=== PATIENT | female | born 1950 | race Caucasian/White ===

== ENCOUNTER 2017-05-27 00:26 | Day surgery (SDC) | payer MEDICARE, OTHER ==
[~2017-05-27 00:26] MED LIST: ALBUTEROL INH; AMLO5 PO; BUDE6HFA INH; CALCIUM PO; CETI5 PO; CONEST.625 PO; CONEST.9 PO; CYCL10 PO; Calcium 600+D1 EAC2 PO; DICL.1SO OD; FLUT110OIA; GEMF600 PO; HYDPAM100 PO; HYDSUL200 PO; IRON PO; LISI20 PO; LORA10ER PO; LOSA25 PO; LOSARTAN-HCTZ1 EAC2 PO; LOSHYD100 PO; MONT10T PO; MULVITMINF PO; NAPR220 PO; OLME5TAB PO; PRED10 PO; PROBIOTIC 5 BI1 EACH PO; PROP30DR OP; Remicade100 MG IV; SULF500A PO; VIT D PO; VITAMIN E PO; ZINC PO
[2017-05-27] MEDS ORDERED: PRED10 PO (15:07)
[2017-05-27] MEDS ORDERED: ALBU3IS INH (15:08)
[2017-05-27] MEDS ORDERED: ALLEGRA ALLERG180 MG PO (15:09)
[2017-05-27 16:42] LABS: BASOPHILS ABSOLUTE AUTO 0.01 K/mm3 (0.00-0.23); BASOPHILS PERCENT AUTO 0 % (0-2); EOSINOPHILS ABSOLUTE AUTO 0.02 K/mm3 (0.00-0.68); EOSINOPHILS PERCENT AUTO 0 % (0-6); Hemoglobin 11.6 g/dL (11.5-16.0); IMMATURE GRAN ABSOLUTE AUTO 0.04 K/mm3 (0.00-0.10); IMMATURE GRAN PERCENT AUTO 0 % (0-1); LYMPHOCYTES ABSOLUTE AUTO 0.89 K/mm3 (0.84-5.20); LYMPHOCYTES PERCENT AUTO 8 % (21-46); MONOCYTES ABSOLUTE AUTO 0.39 K/mm3 (0.16-1.47); MONOCYTES PERCENT AUTO 3 % (4-13); Mean Corpuscular HGB 29.1 pg (26.0-34.0); Mean Corpuscular HGB Conc 31.4 g/dL (31.5-36.5); Mean Corpuscular Volume 93 fL (80-100); Mean Platelet Volume 9.6 fL (9.1-12.4); NEUTROPHILS ABSOLUTE AUTO 9.98 K/mm3 (1.96-9.15); NEUTROPHILS PERCENT AUTO 88 % (41-73); Platelet Count 313 K/mm3 (150-400); RDW Coefficient Variation 13.7 % (11.7-14.2); RDW Standard Deviation 46.5 fL (35.1-46.3); Red Blood Cell Count 3.99 M/mm3 (3.80-5.20); White Blood Cell Count 11.33 K/mm3 (4.00-11.30)
[2017-05-27 17:41] LABS: Alanine Aminotransfer (ALT/SGP 29 U/L (12-78); Albumin, Blood 3.8 g/dL (3.4-5.0); Alk Phos 78 U/L (50-136); Anion Gap 9 mmol/L (6-16); Aspartate Aminotrans (AST/SGOT 23 U/L (12-37); Bilirubin, Total 0.3 mg/dL (0.1-1.0); Blood Urea Nitrogen 16 mg/dL (8-24); Bun/Creatinine Ratio 18.5 (12.0-20.0); C-REACTIVE PROTEIN, EXT RANGE 0.493 mg/dL (0.000-0.300); CO2, Blood 25 mmol/L (21-32); Calcium, Blood 9.4 mg/dL (8.5-10.1); Chloride, Blood 103 mmol/L (98-108); Creatinine, Blood 0.87 mg/dL (0.40-1.00); Globulin, Blood 3.7 g/dL (2.2-4.0); Glomerular Filtration Rate >60 (60-); Glucose, Blood 125 mg/dL (70-99); Potassium, Blood 4.1 mmol/L (3.5-5.5); Sodium, Blood 137 mmol/L (136-145); Total Protein, Blood 7.5 g/dL (6.4-8.2)
[2017-09-18] MEDS ORDERED: INFLECTRA100 MG IV (10:03)
== END 2017-05-27 15:26 | disposition home or self-care (01) ==
LOC: ATC 00:26
PROVIDERS: Internal Medicine Rheumatology
DX: M06.09 Rheumatoid arthritis without rheumatoid factor, multiple sites (principal); H93.19 Tinnitus, unspecified ear; E78.5 Hyperlipidemia, unspecified; I10 Essential (primary) hypertension
CPT/HCPCS: 36415; 80053; 85025; 86140; 99211; J1745; J7050

== ENCOUNTER 2017-06-07 01:02 | Day surgery (SDC) | payer MEDICARE, OTHER ==
[~2017-06-07 01:02] MED LIST changes: +ALBU3IS INH; +ALLEGRA ALLERG180 MG PO
[2017-09-18] MEDS ORDERED: INFLECTRA100 MG IV (10:03)
== END 2017-06-07 16:56 | disposition home or self-care (01) ==
LOC: ATC 01:02
DX: M06.09 Rheumatoid arthritis without rheumatoid factor, multiple sites (principal); H93.13 Tinnitus, bilateral; I10 Essential (primary) hypertension; Z77.22 Contact with and (suspected) exposure to environmental tobacco smoke (acute) (chronic); E78.5 Hyperlipidemia, unspecified
CPT/HCPCS: 96413; 96415; J7050; Q5102-ZB

== ENCOUNTER 2017-08-02 00:33 | Day surgery (SDC) | payer MEDICARE, OTHER ==
[2017-09-18] MEDS ORDERED: INFLECTRA100 MG IV (10:03)
== END 2017-08-02 16:22 | disposition home or self-care (01) ==
LOC: ATC 00:33
DX: M06.09 Rheumatoid arthritis without rheumatoid factor, multiple sites (principal); J45.909 Unspecified asthma, uncomplicated; G47.33 Obstructive sleep apnea (adult) (pediatric)
CPT/HCPCS: 96413; 96415; J1745; J7050; Q0163; Q5102-ZB

== ENCOUNTER → 2018-09-23 | Outpatient (CLI) | payer MEDICARE, OTHER ==
[~2018-09-23] MED LIST changes: +INFLECTRA100 MG IV
== END | disposition home or self-care (01) ==
LOC: LAB SHORT 15:05 → PLD 15:05
DX: D36.13 Benign neoplasm of peripheral nerves and autonomic nervous system of lower limb, including hip (principal)
CPT/HCPCS: 88305

== ENCOUNTER → 2019-01-21 | Outpatient (CLI) | payer MEDICARE, OTHER ==
[2019-01-22 09:13] LABS: Candida species (DNA Probe) Negative (NEGATIVE); G. vaginalis (DNA Probe) Negative (NEGATIVE); T. vaginalis (DNA Probe) Negative (NEGATIVE)
== END ==
LOC: LAB 13:48 → LAB SHORT 13:48
PROVIDERS: Obstetrics & Gynecology
DX: N95.2 Postmenopausal atrophic vaginitis (principal); N76.0 Acute vaginitis
CPT/HCPCS: 87480; 87510; 87660

== ENCOUNTER → 2019-03-10 | Outpatient (CLI) | payer MEDICARE, OTHER | END | disposition home or self-care (01) | LOC: PLD 13:43 → LAB SHORT 13:43 | DX: L30.9 Dermatitis, unspecified (principal) | CPT/HCPCS: 88305; 88313 ==

== ENCOUNTER → 2020-01-20 | Outpatient (CLI) | payer MEDICARE, OTHER | END | disposition home or self-care (01) | LOC: PLD 12:03 → LAB SHORT 12:03 | DX: L30.8 Other specified dermatitis (principal) | CPT/HCPCS: 88305 ==

== ENCOUNTER → 2023-05-10 | Outpatient (CLI) | payer MEDICARE, OTHER | END | disposition home or self-care (01) | LOC: LAB SHORT 10:56 → LAB 10:56 | DX: R05.1 Acute cough (principal) | CPT/HCPCS: 87070; 87205 ==

== ENCOUNTER 2023-06-20 06:27 | Day surgery (SDC) | payer MEDICARE, OTHER ==
[~2023-06-20] VITALS: Ht 121.9 cm; Wt 72.4 kg
[~2023-06-20 06:27] MED LIST changes: +ALBU2.5V5 NEB; +ALBU90OI INH; +CELE200 PO; +EZET10 PO; +FLONASE ALLERG9.9 M2; +FURO20 PO; -LOSA25 PO; +LOSARTAN POTAS100 M1 PO; +NORVASC5 MG PO; +OMEP20ER PO; +SYMBICORT 160-4.6 GM INH; +[UNRECOGNIZED DRUG - OTHER] PO
[2023-06-20] MEDS ORDERED: Lactated Ringer's 1,000 ML IV ONE ×4 (06:36→10:40)
[2023-06-20] MEDS ORDERED: NS 50 ML IV ONE (07:06)
[2023-06-20] MEDS ORDERED: CeFAZolin Sodium 2,000 MG VIAL ONE (07:06)
[2023-06-20] MEDS ORDERED: TIOT18 (07:18)
[2023-06-20] MEDS ORDERED: ACETAMINOPHEN500 MG PO (07:21)
[2023-06-20] MEDS ORDERED: ACTEMRA (07:23)
[2023-06-20] MEDS ORDERED: FentaNYL Citrate 50 MCG/ML 2 ML Injection ONE (07:33)
[2023-06-20] MEDS ORDERED: Phenylephrine HCl 100 MCG/ML-NS 10MLSYR (1MG/10ML) ONE ×2 (07:33→10:35)
[2023-06-20] MEDS ORDERED: propofoL 20 ML IV ONE (07:33)
[2023-06-20] MEDS ORDERED: Rocuronium Bromide 10 MG/ML 5ML Injection IV ONE (07:33)
[2023-06-20] MEDS ORDERED: Dexamethasone Sod Phos 10 MG/ML 1ML VIAL ONE (07:35)
[2023-06-20] MEDS ORDERED: Ondansetron HCl 2 MG / ML 2ML Vial ONE (07:35)
[2023-06-20] MEDS ORDERED: Bupivacaine HCl 0.25% 30 ML Injection ONE (07:35)
[2023-06-20] MEDS ORDERED: Scopolamine Hydrobromide Patch ONE (07:44)
[2023-06-20] MEDS ORDERED: EPINEPhrine HCl 1 MG/ML 1ML Amp ONE ×2 (07:50→10:13)
[2023-06-20] MEDS ORDERED: ePHEDrine Sulfate 50 MG/ML 1ML Injection ONE (08:45)
[2023-06-20] MEDS ORDERED: Esmolol HCL 10 MG/ML 10ML VIAL ONE (09:28)
[2023-06-20] MEDS ORDERED: Sugammadex Sodium 200 MG/2ML SDV (100 MG/ML) ONE (10:35)
--- NOTE | 2023-06-20 13:08 | NUR ---
06/20/23 1308 Macey Stewart PT'S DRESSINGS (3) NOTED TO HAVE MOD AMOUNT OF BLOOD ON THEM AFTER GETTING PT UP TO RESTROOM X2. BHARAT MANZANO SPOKE TO REE IN OR AND SUPPLIES GIVEN TO BHARAT MANZANO SO THAT DRESSINGS CAN BE CHANGED PRIOR TO PT DISCHARGE. BHARAT MANZANO REMOVED PREVIOUS TEGADERM AND GAUZE DRESSINGS, THEN REPLACED DRESSINGS ON 3 INCISION SITES UNDER STERILE TECHNIQUE. PT MYRIAM WELL. DRESSINGS ALL C,D,I UPON DISCHARGE. PT DENIES ANY PAIN OR NAUSEA.
[2023-06-20 13:09] VITALS: BP 141/63
== END 2023-06-20 13:24 | disposition home or self-care (01) ==
LOC: ORSCSDS 06:27
PROVIDERS: Orthopaedic Surgery Sports Medicine
PROC: 0LM24ZZ Reattachment of Left Shoulder Tendon, Percutaneous Endoscopic Approach (ICD-10-PCS; principal; 2023-06-20 08:00)
PROC: 0RNK4ZZ Release Left Shoulder Joint, Percutaneous Endoscopic Approach (ICD-10-PCS; principal; 2023-06-20 08:00)
PROC: 0PBB4ZZ Excision of Left Clavicle, Percutaneous Endoscopic Approach (ICD-10-PCS; principal; 2023-06-20 08:00)
DX: M75.122 Complete rotator cuff tear or rupture of left shoulder, not specified as traumatic (principal); M75.42 Impingement syndrome of left shoulder; M75.52 Bursitis of left shoulder; M19.012 Primary osteoarthritis, left shoulder; S46.212A Strain of muscle, fascia and tendon of other parts of biceps, left arm, initial encounter; K21.9 Gastro-esophageal reflux disease without esophagitis; E78.5 Hyperlipidemia, unspecified; I10 Essential (primary) hypertension; I73.00 Raynaud's syndrome without gangrene; M35.00 Sjogren syndrome, unspecified; G47.33 Obstructive sleep apnea (adult) (pediatric); Z79.899 Other long term (current) drug therapy; Z68.33 Body mass index [BMI] 33.0-33.9, adult
CPT/HCPCS: A9270; C1713; J0171; J0690; J1100; J2371; J2405; J2704; J3010; J7120

== ENCOUNTER 2023-11-28 01:55 | Day surgery (SDC) | payer MEDICARE, OTHER ==
[~2023-11-28 01:55] MED LIST changes: +ACETAMINOPHEN500 MG PO; +ACTEMRA; +TIOT18
[2023-11-28] MEDS ORDERED: TOCILIZUMAB IV SCH (06:00)
[2023-11-28] MEDS ORDERED: NS IV SCH (06:00)
[2023-11-28 09:35] VITALS: BP 146/65
[2023-11-28 09:58] LABS: BASOPHILS ABSOLUTE AUTO 0.05 K/mm3 (0.00-0.23); BASOPHILS PERCENT AUTO 1 % (0-2); EOSINOPHILS ABSOLUTE AUTO 0.13 K/mm3 (0.00-0.68); EOSINOPHILS PERCENT AUTO 3 % (0-6); Hematocrit 35.1 % (33.0-51.0); Hemoglobin 11.8 g/dL (11.5-16.0); IMMATURE GRAN ABSOLUTE AUTO 0.01 K/mm3 (0.00-0.10); IMMATURE GRAN PERCENT AUTO 0 % (0-1); LYMPHOCYTES PERCENT AUTO 29 % (21-46); MONOCYTES ABSOLUTE AUTO 0.51 K/mm3 (0.16-1.47); MONOCYTES PERCENT AUTO 12 % (4-13); Mean Corpuscular HGB 31.7 pg (26.0-34.0); Mean Corpuscular HGB Conc 33.6 g/dL (31.5-36.5); Mean Corpuscular Volume 94 fL (80-100); Mean Platelet Volume 9.4 fL (9.1-12.4); NEUTROPHILS ABSOLUTE AUTO 2.29 K/mm3 (1.96-9.15); NEUTROPHILS PERCENT AUTO 55 % (41-73); Platelet Count 238 K/mm3 (150-400); RDW Coefficient Variation 11.7 % (11.7-14.2); RDW Standard Deviation 40.5 fL (35.1-46.3); Red Blood Cell Count 3.72 M/mm3 (3.80-5.20); White Blood Cell Count 4.19 K/mm3 (4.00-11.30)
[2023-11-28 10:17] LABS: C-REACTIVE PROTEIN, EXT RANGE <0.290 mg/dL (0.000-0.300)
[2023-11-28 10:19] LABS: Alanine Aminotransfer (ALT/SGP 37 U/L (12-78); Albumin, Blood 4.1 g/dL (3.4-5.0); Albumin/Globulin Ratio 1.4 (0.8-1.8); Alk Phos 49 U/L (50-136); Anion Gap 7 mmol/L (3-11); Aspartate Aminotrans (AST/SGOT 48 U/L (12-37); Bilirubin, Total 0.7 mg/dL (0.1-1.0); Blood Urea Nitrogen 23 mg/dL (8-24); Bun/Creatinine Ratio 25.7 (12.0-20.0); CO2, Blood 26 mmol/L (21-32); Calcium, Blood 9.1 mg/dL (8.5-10.1); Chloride, Blood 109 mmol/L (98-108); Glomerular Filtration Rate 67 (60-); Glucose, Blood 101 mg/dL (70-99); Potassium, Blood 4.8 mmol/L (3.5-5.5); Sodium, Blood 137 mmol/L (136-145); Total Protein, Blood 7.1 g/dL (6.4-8.2)
== END 2023-11-28 11:07 | disposition home or self-care (01) ==
LOC: ATC 01:55
PROVIDERS: Internal Medicine
DX: M06.09 Rheumatoid arthritis without rheumatoid factor, multiple sites (principal); Z88.8 Allergy status to other drugs, medicaments and biological substances; Z79.899 Other long term (current) drug therapy
CPT/HCPCS: 80053; 85025; 86140; 96365; J3262

== ENCOUNTER 2024-01-28 03:04 | Day surgery (SDC) | payer MEDICARE, OTHER ==
[2024-01-28] MEDS ORDERED: NS IV SCH (06:00)
[2024-01-28] MEDS ORDERED: TOCILIZUMAB IV SCH (06:00)
[2024-01-28 15:09] VITALS: BP 121/84
== END 2024-01-28 16:40 | disposition home or self-care (01) ==
LOC: ATC 03:04
PROVIDERS: Internal Medicine
DX: M06.09 Rheumatoid arthritis without rheumatoid factor, multiple sites (principal); I10 Essential (primary) hypertension; K21.9 Gastro-esophageal reflux disease without esophagitis; Z79.899 Other long term (current) drug therapy; Z88.8 Allergy status to other drugs, medicaments and biological substances
CPT/HCPCS: 86480; 96365; J3262

== ENCOUNTER 2024-02-25 02:12 | Day surgery (SDC) | payer MEDICARE, OTHER ==
[~2024-02-25] VITALS: Wt 71.9 kg
[2024-02-25] MEDS ORDERED: TOCILIZUMAB IV SCH (06:00)
[2024-02-25] MEDS ORDERED: NS IV SCH (06:00)
[2024-02-25 10:00] VITALS: BP 152/67
[2024-02-25 11:19] LABS: BASOPHILS ABSOLUTE AUTO 0.05 K/mm3 (0.00-0.23); BASOPHILS PERCENT AUTO 1 % (0-2); EOSINOPHILS ABSOLUTE AUTO 0.12 K/mm3 (0.00-0.68); EOSINOPHILS PERCENT AUTO 3 % (0-6); Hematocrit 38.4 % (33.0-51.0); Hemoglobin 12.8 g/dL (11.5-16.0); IMMATURE GRAN ABSOLUTE AUTO 0.01 K/mm3 (0.00-0.10); IMMATURE GRAN PERCENT AUTO 0 % (0-1); LYMPHOCYTES PERCENT AUTO 30 % (21-46); MONOCYTES ABSOLUTE AUTO 0.44 K/mm3 (0.16-1.47); MONOCYTES PERCENT AUTO 10 % (4-13); Mean Corpuscular HGB 31.7 pg (26.0-34.0); Mean Corpuscular HGB Conc 33.3 g/dL (31.5-36.5); Mean Corpuscular Volume 95 fL (80-100); Mean Platelet Volume 9.4 fL (9.1-12.4); NEUTROPHILS ABSOLUTE AUTO 2.35 K/mm3 (1.96-9.15); NEUTROPHILS PERCENT AUTO 55 % (41-73); Platelet Count 236 K/mm3 (150-400); RDW Coefficient Variation 12.2 % (11.7-14.2); RDW Standard Deviation 42.5 fL (35.1-46.3); Red Blood Cell Count 4.04 M/mm3 (3.80-5.20); White Blood Cell Count 4.27 K/mm3 (4.00-11.30)
[2024-02-25 11:55] LABS: C-REACTIVE PROTEIN, EXT RANGE <0.290 mg/dL (0.000-0.300)
[2024-02-25 12:02] LABS: Alanine Aminotransfer (ALT/SGP 34 U/L (12-78); Albumin, Blood 4.3 g/dL (3.4-5.0); Albumin/Globulin Ratio 1.4 (0.8-1.8); Alk Phos 53 U/L (50-136); Anion Gap 11 mmol/L (3-11); Aspartate Aminotrans (AST/SGOT 32 U/L (12-37); Bilirubin, Total 0.7 mg/dL (0.1-1.0); Blood Urea Nitrogen 24 mg/dL (8-24); Bun/Creatinine Ratio 24.7 (12.0-20.0); CO2, Blood 24 mmol/L (21-32); Calcium, Blood 9.7 mg/dL (8.5-10.1); Chloride, Blood 109 mmol/L (98-108); Creatinine, Blood 0.97 mg/dL (0.40-1.00); Glomerular Filtration Rate 61 (60-); Glucose, Blood 98 mg/dL (70-99); Potassium, Blood 4.1 mmol/L (3.5-5.5); Sodium, Blood 140 mmol/L (136-145); Total Protein, Blood 7.3 g/dL (6.4-8.2)
== END 2024-02-25 12:13 | disposition home or self-care (01) ==
LOC: ATC 02:12
PROVIDERS: Internal Medicine
DX: M06.09 Rheumatoid arthritis without rheumatoid factor, multiple sites (principal); Z79.899 Other long term (current) drug therapy; Z88.8 Allergy status to other drugs, medicaments and biological substances
CPT/HCPCS: 80053; 85025; 86140; 96365; J3262

== ENCOUNTER 2024-03-30 01:20 | Day surgery (SDC) | payer MEDICARE, OTHER ==
[~2024-03-30] VITALS: Wt 72.7 kg
[2024-03-30] MEDS ORDERED: TOCILIZUMAB IV SCH ×4 (06:00→15:40)
[2024-03-30] MEDS ORDERED: NS IV SCH ×4 (06:00→15:40)
[2024-03-30 15:04] VITALS: BP 155/71
== END 2024-03-30 16:56 | disposition home or self-care (01) ==
LOC: ATC 01:20
DX: M06.09 Rheumatoid arthritis without rheumatoid factor, multiple sites (principal); I10 Essential (primary) hypertension; K21.9 Gastro-esophageal reflux disease without esophagitis; Z79.1 Long term (current) use of non-steroidal anti-inflammatories (NSAID); Z79.899 Other long term (current) drug therapy; Z90.710 Acquired absence of both cervix and uterus; Z90.49 Acquired absence of other specified parts of digestive tract; Z88.8 Allergy status to other drugs, medicaments and biological substances
CPT/HCPCS: 96365; J3262

== ENCOUNTER 2024-04-29 04:51 | Day surgery (SDC) | payer MEDICARE, OTHER ==
[~2024-04-29] VITALS: Wt 71.6 kg
[2024-04-29] MEDS ORDERED: TOCILIZUMAB IV SCH (06:00)
[2024-04-29] MEDS ORDERED: NS IV SCH (06:00)
[2024-04-29 15:11] VITALS: BP 136/64
== END 2024-04-29 16:40 | disposition home or self-care (01) ==
LOC: ATC 04:51
DX: M06.09 Rheumatoid arthritis without rheumatoid factor, multiple sites (principal); I10 Essential (primary) hypertension; J45.909 Unspecified asthma, uncomplicated; K21.9 Gastro-esophageal reflux disease without esophagitis; Z88.0 Allergy status to penicillin; Z88.8 Allergy status to other drugs, medicaments and biological substances; Z79.899 Other long term (current) drug therapy
CPT/HCPCS: 96365; J3262

== ENCOUNTER 2024-05-27 12:34 | Emergency (ER) | payer MEDICARE, OTHER ==
[~2024-05-27] VITALS: Ht 147.3 cm; Wt 70.3 kg
[2024-05-27 12:42] VITALS: BP 175/72
[2024-05-27] MEDS ORDERED: METPRE4DP PO (15:23)
[2024-05-27] MEDS ORDERED: PredniSONE 20 MG Tab PO ONE (15:25)
== END 2024-05-27 15:41 | disposition home or self-care (01) ==
LOC: ER 12:34
DX: M54.17 Radiculopathy, lumbosacral region (principal)
CPT/HCPCS: 99284; J7512

== ENCOUNTER 2024-06-29 10:05 | Emergency (ER) | payer MEDICARE, OTHER ==
[~2024-06-29] VITALS: Ht 144.8 cm; Wt 73.0 kg
[~2024-06-29 10:05] MED LIST changes: +METPRE4DP PO
[2024-06-29 10:29] VITALS: BP 153/78
[2024-06-29] MEDS ORDERED: Triamcinolone A15 GM TOP (13:17)
[2024-06-29] MEDS ORDERED: PRED20 PO (13:17)
== END 2024-06-29 13:29 | disposition home or self-care (01) ==
LOC: ER 10:05
DX: L23.9 Allergic contact dermatitis, unspecified cause (principal); Z90.49 Acquired absence of other specified parts of digestive tract; Z98.890 Other specified postprocedural states; I10 Essential (primary) hypertension; J45.909 Unspecified asthma, uncomplicated; Z79.899 Other long term (current) drug therapy; Z79.1 Long term (current) use of non-steroidal anti-inflammatories (NSAID); Z79.2 Long term (current) use of antibiotics; Z88.5 Allergy status to narcotic agent; Z91.09 Other allergy status, other than to drugs and biological substances; Z88.1 Allergy status to other antibiotic agents; Z88.8 Allergy status to other drugs, medicaments and biological substances
CPT/HCPCS: 99282

== ENCOUNTER 2025-05-07 13:51 | Emergency (ER) | payer MEDICARE, OTHER ==
[~2025-05-07] VITALS: Ht 144.8 cm; Wt 71.7 kg
[~2025-05-07 13:51] MED LIST changes: +PRED20 PO; +Triamcinolone A15 GM TOP
[2025-05-07 14:28] VITALS: BP 155/85
[2025-05-07 15:23] LABS: BASOPHILS ABSOLUTE AUTO 0.08 K/mm3 (0.00-0.23); BASOPHILS PERCENT AUTO 1 % (0-2); EOSINOPHILS ABSOLUTE AUTO 0.22 K/mm3 (0.00-0.68); EOSINOPHILS PERCENT AUTO 3 % (0-6); Hematocrit 36.3 % (33.0-51.0); Hemoglobin 11.8 g/dL (11.5-16.0); IMMATURE GRAN ABSOLUTE AUTO 0.03 K/mm3 (0.00-0.10); IMMATURE GRAN PERCENT AUTO 0 % (0-1); LYMPHOCYTES ABSOLUTE AUTO 1.64 K/mm3 (0.84-5.20); LYMPHOCYTES PERCENT AUTO 23 % (21-46); MONOCYTES ABSOLUTE AUTO 0.73 K/mm3 (0.16-1.47); MONOCYTES PERCENT AUTO 10 % (4-13); Mean Corpuscular HGB Conc 32.5 g/dL (31.5-36.5); Mean Corpuscular Volume 91 fL (80-100); NEUTROPHILS ABSOLUTE AUTO 4.31 K/mm3 (1.96-9.15); NEUTROPHILS PERCENT AUTO 62 % (41-73); NRBC ABSOLUTE 0.00 K/mm3 (0.00-0.02); NRBC Auto 0.0 /100 WBC (0.0-0.2); Platelet Count 283 K/mm3 (150-400); RDW Coefficient Variation 12.7 % (11.7-14.2); RDW Standard Deviation 41.8 fL (35.1-46.3)
[2025-05-07 15:54] LABS: Alanine Aminotransfer (ALT/SGP 33.0 U/L (12-78); Albumin, Blood 4.2 g/dL (3.4-5.0); Albumin/Globulin Ratio 1.1 (0.8-1.8); Anion Gap 9.0 mmol/L (3-11); Aspartate Aminotrans (AST/SGOT 26.0 U/L (12-37); Bilirubin, Total 0.4 mg/dL (0.1-1.0); Blood Urea Nitrogen 22.0 mg/dL (8-24); CO2, Blood 24.0 mmol/L (21-32); Calcium, Blood 9.6 mg/dL (8.5-10.1); Chloride, Blood 107.0 mmol/L (98-108); Creatinine, Blood 0.79 mg/dL (0.40-1.00); Globulin, Blood 3.7 g/dL (2.2-4.0); Glucose, Blood 102.0 mg/dL (70-99); Potassium, Blood 4.0 mmol/L (3.5-5.5); Sodium, Blood 136.0 mmol/L (136-145); Total Protein, Blood 7.9 g/dL (6.4-8.2)
== END 2025-05-07 17:49 | disposition home or self-care (01) ==
LOC: ER 13:51
PROVIDERS: Student in an Organized Health Care Education/Training Program
DX: R42 Dizziness and giddiness (principal); I10 Essential (primary) hypertension; J45.909 Unspecified asthma, uncomplicated; Z88.8 Allergy status to other drugs, medicaments and biological substances; Z88.5 Allergy status to narcotic agent; Z79.899 Other long term (current) drug therapy; W18.30XA Fall on same level, unspecified, initial encounter
CPT/HCPCS: 70450; 80053; 85025; 93005; 93010; 99284-25